=== PATIENT | male | born 1940 | race Caucasian/White ===

== ENCOUNTER 2016-10-19 09:03 | Emergency (ER) | payer MEDICARE, BC ==
[2016-10-19 10:01] LABS: Hematocrit 45.3 % (42.0-52.0); Hemoglobin 15.7 gm/dL (13.5-18.0); Mean Cell Volume 87.8 fl (78-100); Mean Corpuscular Hemoglobin 30.4 pg (27-31); Mean Corpuscular Hgb Conc 34.7 g/dl (32-36); Mean Platelet Volume 10.6 fl (6.0-9.5); Neutrophil # 9.1 K/mm3 (1.3-6.0); Neutrophil % 74.6 % (42-75.0); Platelet Count 211 K/mm3 (150-450); Red Blood Count 5.16 M/mm3 (4.7-6.0); Red Cell Distribution Width 12.4 % (11.5-14.0); White Blood Count 12.2 K/mm3 (4.0-10.5)
[2016-10-19 10:21] LABS: ALT 25 U/L (19-67); AST 11 U/L (0-48); Albumin * 3.6 gm/dl (3.4-5.0); Alkaline Phosphatase * 65 U/L (50-170); Anion Gap 11.6 mmol/L (6.8-13.8); Bilirubin, Total 0.6 mg/dL (0.0-1.1); Blood Urea Nitrogen 12 mg/dL (6-23); Ca. Corrected For Albumin 9.3 mg/dL (8.4-10.2); Calcium * 9.3 mg/dL (7.9-10.9); Carbon Dioxide 26.3 mmol/L (24-32.6); Chloride 104 mmol/L (97-106); Glucose * 165 mg/dL (70-110); Potassium 3.9 mmol/L (3.4-4.6); Sodium 138 mmol/L (132-142); Total Protein 7.1 gm/dL (6.2-8.2)
[2016-10-19 10:22] LABS: Troponin I Less than 0.017 ng/ml (0.00-0.10)
[2016-10-19 10:30] LABS: Prothrombin Time (Patient) 10.9 Seconds (9.4-11.4)
[2016-10-19 10:31] VITALS: BP 103/60
[2016-10-19 10:31] LABS: INR 1.05 INR (0.90-1.10); Partial Thrombolplastin Time 22.6 Seconds (24-32)
--- NOTE | 2016-10-19 10:58 | ERNOTE ---
Dizziness ER Record Date of Service: 10/19/16 Presenting Symptoms: other - syncope Time Seen by Provider: 10/19/16 09:39 Source: patient Exam Limitations: no limitations Immunizations: IMMUNIZATION HX Immunizations Up to Date Yes History of Influenza Vaccine Yes Hx Pneumococcal Vaccination No Allergies/Adverse Reactions: Allergies Allergy/AdvReac Type Severity Reaction Status Date / Time No Known Allergies Allergy Unverified 10/19/16 09:17 - History of Present Illness Narrative: Patient relates that last night he had an acute severe headache on the left side of his head. He never gets headaches and this was unusual. He took some tylenol and his WALKER improved, now just mild. He relates that this am he felt lightheaded let himself down then passed out. Not clear how long he was out. He denies head injury. No neck pain. He denies N/T/W. No vomiting. No CP or SOB. No abdominal pain. Has not been seen for this. Now WALKER very mild. Timing and Duration: sudden onset Episodes lasting:: unclear Worse/persistent since:: improved Noted on awakening:: Yes Severity: max: severe Severity: currently: mild Associated Symptoms: Absent: vomiting Sense of movement: Absent: spinning Fainted/near fainted while:: Present: standing Review of Systems - Review of Systems Constitutional: Absent: fever EYE: Absent: vision changes Respiratory: Absent: shortness of breath Cardiology: Absent: chest pain Gastrointestinal/Abdominal: Absent: abdominal pain All Other Systems: All systems neg except as marked - Patient's Past Medical History Patient History - Medical: Diabetes Type 2 Patient History - Cardiac/Respiratory: Hypertension Patient History - Cancer: No Hx of Cancer Patient History - Surgical Procedures: Cataracts Patient History - Other: None - Social History Living Situations: spouse Smoking Status: Current every day smoker Have you smoked in the past 12 months: Yes Do you dip or chew tobacco: No Patient requests Smoking Cessation Consult: No Initiate information on Smoking Cessation: No Alcohol Use: rarely Drug Use: none - Immunizations Immunizations Up to Date: Yes Hx Pneumococcal Vaccination: No History of Influenza Vaccine: Yes Physical Exam - Physical Exam General Appearance: Present: alert, no apparent distress Eye Exam: Normal inspection: bilateral, PERRL: bilateral Ears, Nose, Throat: Present: normal ENT inspection Neck: Present: normal inspection, nontender, other - no posterior Cspine tenderness Respiratory: Present: no respiratory distress, normal breath sounds, no accessory muscle use, lungs clear Cardiovascular/Chest: Present: regular rate, rhythm Gastrointestinal/Abdominal: Present: normal bowel sounds, nontender, nondistended, soft Back Exam: Absent: vertebral tenderness Extremity Exam: Present: normal inspection Neurological Exam: Present: alert, normal mood/affect, no motor/sensory deficits , line welder II-XII nml as tested, other - possible mild rigtht finger to nose dysmetria. No unilateral focal motor or sensory defiicts. Skin Exam: Absent: skin rash ED Progress - Results and Orders Patient's Lab Results:: I have reviewed the patient's lab results. - Vital Signs Patient's Vital Signs:: I have reviewed the patient's vital signs. Vital Signs: Vital Signs 10/19/16 10/19/16 09:10 10:31 Pulse Rate 57 L 53 L Respiratory 16 16 Rate Blood Pressure 138/67 103/60 O2 Sat by Pulse 94 96 Oximetry - EKG EKG read: Interp. by me EKG Comments: Apparent new onset a fib with controlled ventricular response. Non-specific ST/ T wave changes, no STEMI. - X-Ray X-Ray #1 X-Ray: chest Interpretation: Interp. by me X-ray Comments: No acute process - CT/Ultrasound CT/Ultrasound Narrative: I reviewed radiology HCT report - Progress/Reassessment Chief Complaint: Dizziness Progress Note-Subjective: 10/19/16 10:56 Pt preference [facility]. D/W Dr Thurman who accepts. Delay in ambulance transfer necessitates [facility]. Keppra IV given. Departure Clinical Impression: ICH (intracerebral hemorrhage), Subdural hematoma, Syncope, Headache, Atrial fibrillation - Departure Disposition: [facility] Condition: Fair Referrals: Anuradha Bruce MD [Primary Care Provider] -
== END 2016-10-19 11:04 | disposition short-term general hospital (02) ==
LOC: ER 09:03
DX: I61.9 Nontraumatic intracerebral hemorrhage, unspecified (principal); I62.00 Nontraumatic subdural hemorrhage, unspecified; R55 Syncope and collapse; R51 Headache; I48.91 Unspecified atrial fibrillation; F17.210 Nicotine dependence, cigarettes, uncomplicated